=== PATIENT | male | born 1990 | race Caucasian/White ===

== ENCOUNTER 2017-03-10 14:12 | Emergency (ER) | payer OTHER ==
--- NOTE | ~2017-03-10 | ER ---
PATIENT'S NAME: ANNE MCFARLAND [facility] AGE: 26 Y [address] ROOM: [place] [address] LOCATION: ED ADMIT DATE: 03/10/2017 ER/Outpatient Report DISCHARGE DATE: 03/10/2017 FAMILY PHYSICIAN: JOSHUA WAY ATTENDING PHYSICIAN: Francisco Brock CHIEF COMPLAINT: Abdominal pain. HISTORY OF PRESENT ILLNESS: Mr. Mcfarland knows that he has had abdominal pain and diarrhea for approximately 10 days. He was having worsening left-sided abdominal pain over the last few days and today it was unbearable. That prompted him to go to [facility] where he was found to be Hemoccult positive. There is some concern, so he was sent here for further evaluation. He has no known history of inflammatory or irritable bowel syndrome. He has no other known medical conditions. He recently moved from [place] for work and is trying to find a home with his family and they are planning on moving in this weekend. So, he has been under a significant amount of stress lately. No recent unusual travel or exposures. No immunosuppression that he is aware of. No weight changes, fevers, chills, weight loss, B type symptoms, or other presentations. PAST MEDICAL HISTORY: Documented on the record and reviewed by me. SOCIAL HISTORY: Documented on the record and reviewed by me. MEDICATIONS: Documented on the record and reviewed by me. ALLERGIES: DOCUMENTED ON THE RECORD AND REVIEWED BY ME. REVIEW OF SYSTEMS: All systems reviewed and negative except as noted in the HPI. PHYSICAL EXAMINATION: VITAL SIGNS: Blood pressure is 128/80, pulse is 86, respiratory rate is 20, temperature 99.0, SpO2 is 96% on room air. Pain is rated 4/10. GENERAL: Age-appropriate male, recumbent on exam table. No apparent pain or distress. HEENT: Normocephalic, atraumatic. Eyes are PERRL. Oropharynx clear. NECK: Supple. Trachea is midline. CHEST: Heart is regular rate and rhythm with no murmurs. PATIENT'S NAME: ANNE MCFARLAND [facility] AGE: 26 Y [address] ROOM: [place] [address] LOCATION: [facility] ADMIT DATE: 03/10/2017 ER/Outpatient Report DISCHARGE DATE: 03/10/2017 FAMILY PHYSICIAN: PHYSICIAN, NO ATTENDING PHYSICIAN: Francisco Brock LUNGS: Clear to auscultation bilateral. No rhonchi, wheezes, or rales. ABDOMEN: Soft, slightly tender, most prominent on the left side. No focal tenderness. No rebound, guarding, or masses. BACK: Normal to inspection and palpation. No CVA tenderness. RECTAL: Normal. EXTERNAL ANUS: No hemorrhoids appreciated. Internal exam with no focal areas of tenderness or fluctuance. No stool in the rectal vault. EXTREMITIES: Warm and well perfused. No obvious abnormalities or deformities. No edema. SKIN: Clean, dry, and intact. No rashes. LABS AND X-RAY: CT scan of the abdomen reveals diffuse colitis with no evidence of peritoneal involvement. No free air. No bowel obstruction. No overt diverticulitis. Labs: C diff is negative. Giardia negative. Cryptosporidium negative. CMS with no appreciable electrolyte abnormalities other than mild hypokalemia at 3.3. Creatinine 1.2. GFR is 83. No significant LFT abnormalities. Fecal occult blood is positive. Fecal white count is moderate. INR is 1.1. CBC: White count 15.5, 11.6 neutrophils, 1.9 monos, hemoglobin 14.2, platelets of 438. Labs from the [facility] were reviewed. Notable for negative H pylori as well. IMPRESSION: 1. Colitis, likely infectious. 2. Possible ulcer disease. EMERGENCY DEPARTMENT COURSE: The patient was seen and evaluated as above. He was given fluids, Bentyl, famotidine, with marked improvement in his symptoms. He was also given a dose of pantoprazole. Perforation and obstruction were ruled out. His vital signs are normal. It appears as though he is staying up on hydration. I do not think he needs admitted for this issue. We will start him on ciprofloxacin and Flagyl as well as famotidine for 2 weeks for possible ulcer disease and Bentyl for discomfort. He will initiate omeprazole therapy at home. He feels like he will be able to initiate their care in [place] where he recently moved and establish primary care. I encouraged him to do so this week. All questions were answered. The patient was discharged in good condition. MD TING GREENE/saminal PATIENT'S NAME: ANNE MCFARLAND [facility] AGE: 26 Y [address] ROOM: [place] [address] LOCATION: [facility] ADMIT DATE: 03/10/2017 ER/Outpatient Report DISCHARGE DATE: 03/10/2017 FAMILY PHYSICIAN: JOSHUA WAY ATTENDING PHYSICIAN: Francisco Brock /[id number] d: 03/11/17 1209 t: 03/24/17 1000, OUTPATIENT REPORT
[2017-03-10 15:21] LABS: BASOPHIL # 0.1 K/uL (0.0-0.2); BASOPHIL % 0.3 %; EOSINOPHIL # 0.1 K/uL (0.0-0.5); EOSINOPHIL % 0.3 %; HEMATOCRIT 41.6 % (37.0-53.0); HEMOGLOBIN 14.2 g/dL (12.0-17.0); IMMATURE GRANULOCYTE # 0.1 K/uL (0.0-0.3); IMMATURE GRANULOCYTE % 0.5 %; LYMPHOCYTE # 1.7 K/uL (0.8-4.0); LYMPHOCYTE % 11.2 %; MCH 30.5 pg (27.0-34.0); MCHC 34.1 gm/dL (32.0-36.5); MCV 89.5 fl (83.0-98.0); MONOCYTE # 1.9 K/uL (0.0-1.0); MONOCYTE % 12.5 %; NEUTROPHIL # (ANC) 11.6 K/uL (1.4-9.0); NEUTROPHIL % 75.2 %; NRBC % 0 /100WBC (0-0.00); PLATELET COUNT 438 K/uL (150-450); RBC 4.65 M/uL (4.00-6.00); RDW-CV 11.9 % (11.9-14.6); WBC 15.5 K/uL (4.0-11.0)
[2017-03-10 15:29] LABS: INR - (THERAPEUTIC) 1.19 (0.92-1.07); PROTIME 12.5 SECONDS (9.8-11.4)
[2017-03-10 15:37] LABS: ALBUMIN 2.9 gm/dL (3.5-5.0); ANION GAP 10.3 (10.0-19.0); CALCIUM 8.3 mg/dL (8.5-10.5); CREATININE 1.2 mg/dL (0.6-1.3); POTASSIUM 3.3 mMol/L (3.7-5.1); TOTAL BILIRUBIN 0.4 mg/dL (0.0-1.5); TOTAL PROTEIN 6.9 g/dL (6.0-8.4)
== END 2017-03-10 17:48 | disposition disaster alternative care site (69) ==
LOC: GMED 14:12
PROVIDERS: Emergency Medicine
DX: K52.9 Noninfective gastroenteritis and colitis, unspecified (principal)
CPT/HCPCS: C9113; J0500; J7030; Q9967